=== PATIENT | female | born 1955 | race American Indian/Alaskan Native ===

== ENCOUNTER 2017-09-28 08:55 | Outpatient (CLI) | payer OTHER ==
--- NOTE | 2017-09-29 08:56 | PET Report ---
PET/CT:09/28/17 08:55:00 CLINICAL: Breast cancer staging. RADIOPHARMACEUTICAL: 14.484mCi F18-FDG. COMPARISON: None. TECHNIQUE- Following intravenous injection of F-18 FDG and an approximately 60 minute uptake period, CT and PET images from the mid skull to the upper thighs were acquired with the patient in the fasted state. No contrast was administered. The CT protocol used for this PET CT study is designed for attenuation correction and anatomic localization of PET abnormalities. This fruit washer CT is not desired to produce and cannot replace, [id number] diagnostic CT scans with specific imaging protocols for different body parts and indications. Plasma glucose at the time of this test: 119g/dl. The standardized uptake values (SUV) are normalized to patient body weight and indicate the highest activity concentration (SUV max) in a given disease site. FINDINGS: Brain--Physiologic FDG uptake in the visualized regions of the brain. Neck--Physiologic FDG uptake in mucosal structures. No mass or lymphadenopathy. This Chest--Physiologic FDG uptake in mediastinal blood pool and myocardium. No breast or chest wall mass. Lungs--No abnormal uptake. No pulmonary nodule or mass. Pleura/pericardium--No abnormal uptake. Thoracic nodes--No abnormal uptake. No lymphadenopathy. Hepatobiliary--No abnormal uptake. Liver background SUV mean, as a reference for comparing FDG studies, is 4.4 . No liver mass. Status post cholecystectomy. Spleen--No abnormal uptake. Pancreas--No abnormal uptake. Adrenal Glands--No abnormal uptake. Kidneys/Ureters/Bladder--No abnormal uptake. Abdominopelvic Nodes--No abnormal uptake. Bowel/Peritoneum/Mesentery--No abnormal uptake. Pelvic organs--No abnormal uptake. Bones/Soft Tissues--No abnormal uptake. Other findings: An artifactual focus of activity is identified outside of the body adjacent to the upper extremity. A fat containing right inguinal hernia. IMPRESSION- Negative study.
== END 2017-09-28 08:56 | disposition home or self-care (01) ==
LOC: PET 08:55
PROVIDERS: ATTEND Internal Medicine Hematology & Oncology
DX: C50.912 Malignant neoplasm of unspecified site of left female breast (principal)
CPT/HCPCS: 78815; 82962; A9552

== ENCOUNTER 2017-11-28 11:08 | Outpatient (CLI) | payer OTHER ==
--- NOTE | 2017-11-28 16:31 | Magnetic Resonance Report ---
BILATERAL BREAST MRI WITHOUT AND WITH CONTRAST: 11/28/17 11:08:00 CLINICAL: Newly diagnosed left breast cancer. COMPARISON:None.. TECHNIQUE: Axial 1.0-mm T1 without, axial high resolution 2.0-mm T2 and axial 1.0-mm dynamic Vibrant high-resolution postcontrast T1 fat saturation sequences on a 1.5 Zoya magnet. The examination was performed with an 8 channel dedicated [employer] breast coil. Post processing with CAD and subtraction was performed on an [employer] workstation. 19.0 cc of Multihance was injected for the contrast portion of the exam. Consent was obtained prior to the administration of the contrast. FINDINGS: Right: Minimal background parenchymal enhancement. No mass or suspicious enhancement. No suspicious lymph nodes. Left: Minimal background parenchymal enhancement. An irregular enhancing mass in the upper-inner quadrant 11.5 cm from the nipple measures 16.8 x 11.4 x 11.0 mm. It demonstrates heterogeneous enhancement with mixed kinetics, 198% peak enhancement and 39% type III washout. There is an adjacent biopsy clip. No other mass suspicious enhancement. No suspicious lymph nodes. IMPRESSION: 1. A 1.7 cm known left breast cancer in the upper inner quadrant and no additional suspicious lesion of either breast. No suspicious lymph nodes. BI-RADS 6 -- Known Cancer
== END 2017-11-28 11:09 | disposition home or self-care (01) ==
LOC: SPVIMAG 11:08
PROVIDERS: ATTEND Surgery
DX: C50.812 Malignant neoplasm of overlapping sites of left female breast (principal)
CPT/HCPCS: A9577; C8908; 77059